=== PATIENT | female | born 2000 | race Caucasian/White ===

== ENCOUNTER → 2018-01-29 | Outpatient (CLI) | payer BC | END | disposition home or self-care (01) | LOC: RADECHMAIN 12:07 | PROVIDERS: ATTEND Family Medicine | DX: I49.9 Cardiac arrhythmia, unspecified (principal); I47.1 Supraventricular tachycardia | CPT/HCPCS: 93225; 93226 ==

== ENCOUNTER → 2018-02-14 | Day surgery (SDC) | payer BC ==
[2018-02-13 12:05] VITALS: BMI 18.9
[~2018-02-14] MED LIST: SODIUM CHLORIDE 0.9% 1,000 ML IV SCH
[2018-02-14 08:39] VITALS: BP 108/65; PULSE 70; RESP 18; TEMP 98.3
--- NOTE | 2018-02-14 13:22 | CE ---
CARDIAC ELECTROPHYSIOLOGY REPORT TILT TABLE TEST A 17-year-old female with history of recurrent presyncope/syncope. A 12-lead ECG shows sinus rhythm with normal cardiac intervals, normal ST segments. No delta waves. Tilt table test was performed per protocol. Baseline blood pressure 116/63 mmHg. Baseline heart rate 69 beats per minute. The patient is tilted upright at an angle of 70 degrees per protocol. There was no change in heart rate or blood pressure. She complained of heaviness in the chest. Heart rate was about 106 beats per minute. She also complained of lightheadedness. Her blood pressure and heart rate was normal at that time. She complained of a headache. Heart rate and blood pressure were normal. She was laid supine at the end of the procedure then she complained of lightheadedness. Her heart rate was 100 beats per minute. Blood pressure is 116/81 mmHg. She is laid supine at the end of the procedure. Her heart rate came back to the mid 60s. Blood pressure was normal. IMPRESSION: No evidence for neurocardiogenic syncope. MMODL / IJN: [id number] /
== END ==
LOC: CATHEP 07:55
PROVIDERS: ATTEND Internal Medicine Clinical Cardiac Electrophysiology
DX: R55 Syncope and collapse (principal); I49.9 Cardiac arrhythmia, unspecified
CPT/HCPCS: 81025; 93660

== ENCOUNTER → 2019-03-05 | Outpatient (CLI) | payer BC ==
[2019-03-05 11:34] LABS: T4, Free (Free Thyroxine) 1.17 ng/dL (0.78-2.19)
[2019-03-06 12:59] LABS: EBV-EA (IgG) <0.2 AI; EBV-EBNA(IgG) >8.0 AI; EBV-VCA (IgG) >8.0 AI
== END | disposition home or self-care (01) ==
LOC: LABMAIN 10:17
PROVIDERS: ATTEND Midwife
DX: R53.83 Other fatigue (principal)
CPT/HCPCS: 36415; 84432; 84439; 84443; 84481; 86663; 86664; 86665